=== PATIENT | male | born 2005 | race Caucasian/White ===

== ENCOUNTER 2025-04-28 15:29 | Emergency (ER) | payer OTHER ==
[2025-04-28 16:24] LABS: BASOPHILS ABSOLUTE AUTO 0.07 K/uL (0.00-0.30); BASOPHILS PERCENT AUTO 0.8 % (0.0-1.0); EOSINOPHILS ABSOLUTE AUTO 0.53 K/uL (0.00-0.70); EOSINOPHILS PERCENT AUTO 6.1 % (0.0-5.0); IMMATURE GRAN ABSOLUTE AUTO 0.02 K/uL (0.00-0.05); IMMATURE GRAN PERCENT AUTO 0.2 % (0.0-0.4); LYMPHOCYTES ABSOLUTE AUTO 2.76 K/uL (2.00-8.80); LYMPHOCYTES PERCENT AUTO 31.5 % (50.0-65.0); MEAN PLATELET VOLUME 11.7 fL (9.4-12.4); MONOCYTES ABSOLUTE AUTO 0.74 K/uL (0.10-1.40); MONOCYTES PERCENT AUTO 8.5 % (2.0-10.0); NEUTROPHILS ABSOLUTE AUTO 4.63 K/uL (1.50-8.50); NEUTROPHILS PERCENT AUTO 52.9 % (35.0-45.0); NRBC ABSOLUTE 0.00 K/uL (0.00-0.03); NRBC PERCENT 0.0 /100WBC (0.0-0.2); PLATELET COUNT,PLT 211 K/uL (150-400); RED BLOOD CELL COUNT 5.45 M/uL (4.52-5.90); WHITE BLOOD CELL COUNT,WBC 8.75 K/uL (4.5-13.5)
[2025-04-28 16:50] LABS: A/G RATIO 1.4 (0.9-1.6); ALANINE AMINOTRANSFERASE,ALT 68.0 IU/L (14-63); ASPARTATE AMNIOTRANSFERASE,AST 35.0 IU/L (15-37); BILIRUBIN TOTAL 0.9 mg/dL (0.2-1.0); BLOOD UREA NITROGEN,BUN 15.0 mg/dL (7.0-18.0); CARBON DIOXIDE,CO2 27.8 mmol/L (21.0-32.0); CHLORIDE,CL 105.0 mmol/L (98-107); CREATINE KINASE,CK 242.0 U/L (26-308); CREATININE 0.9 mg/dL (0.8-1.3); EST CRCL DRUG DOSING (CG) 140.61 mL/min; GLUCOSE RANDOM 88.0 mg/dL (74-106); POTASSIUM,K 3.7 mmol/L (3.5-5.1); PROTEIN TOTAL,TP 8.0 g/dL (6.4-8.2); SODIUM,NA 140.0 mmol/L (136-148)
[2025-04-28 16:55] LABS: ESTIMATED GFR 126.0 mL/min (>60)
== END 2025-04-28 17:15 | disposition home or self-care (01) ==
LOC: MW.ED 15:29
DX: S06.0XAA Concussion with loss of consciousness status unknown, initial encounter (principal); E86.0 Dehydration; Z75.3 Unavailability and inaccessibility of health-care facilities; W22.8XXA Striking against or struck by other objects, initial encounter
CPT/HCPCS: 36415; 70450; 72125; 80053; 82550; 85025; 96360; 99284; J7030; 99283